=== PATIENT | female | born 1955 | race African-American/Black ===

== ENCOUNTER 2023-09-24 14:50 | Emergency (ER) | payer OTHER ==
[~2023-09-24] VITALS: Ht 170.2 cm; Wt 101.0 kg
[2023-09-24 14:58] VITALS: O2SAT 98
[2023-09-24] MEDS ORDERED: IOHEXOL-350 100 ML BOTTLE ONE (15:23)
[2023-09-24 16:27] LABS: ADD RBC MORPHOLOGY YES; BASOPHILS % 0.2 % (0.0-2.0); DIFFERENTIAL COMMENT 1; EOSINOPHILS % 0.5 % (0.0-5.0); HEMATOCRIT. 28.9 % (36.0-48.0); HEMOGLOBIN. 9.4 g/dL (12.0-16.0); LYMPHOCYTES % 18.8 % (20.0-50.0); MEAN CORPUSCULAR HEMOGLOBIN 36.9 pg (28.0-32.0); MEAN CORPUSCULAR HGB CONC 32.4 g/dL (31.0-37.0); MEAN CORPUSCULAR VOLUME 113.9 fL (81.0-99.0); MEAN PLATELET VOLUME 7.5 fl (7.4-10.4); MONOCYTES % 13.3 % (2.0-8.0); NEUTROPHILS % 67.2 % (40.0-76.0); PLATELET 273 x1000/uL (130-400); RED BLOOD CELL COUNT 2.53 mill/uL (4.2-5.4); RED CELL DISTRIBUTION WIDTH 21.6 % (11.6-14.6); WHITE BLOOD COUNT 4.5 x1000/uL (4.5-11.0)
[2023-09-24 16:36] LABS: PARTIAL THROMBOPLASTIN TIME 25.6 sec (23.4-31.0); PROTHROMBIN TIME 10.6 sec (9.6-11.0)
[2023-09-24 16:46] LABS: ANISOCYTOSIS 1+; PLATELET ESTIMATE NORMAL
[2023-09-24] MEDS: ASPIRIN 325MG EC TABLET PO ONE ×2 (16:46→16:48)
[2023-09-24 16:49] LABS: ALANINE AMINOTRANSFERASE 10 IU/L (10-49); ALBUMIN 3.9 g/dL (3.2-4.8); ASPARTATE AMINOTRANSFERASE 32 IU/L (<34); BILIRUBIN TOTAL 0.7 mg/dL (0.1-1.0); CALCIUM 8.9 mg/dL (8.7-10.4); CARBON DIOXIDE 24 mEq/L (21-32); CHLORIDE 105 mEq/L (98-107); CREATININE 2.9 mg/dL (0.6-1.0); GLUCOSE 79 mg/dL (70-105); POTASSIUM 4.7 mEq/L (3.5-5.1); PROTEIN TOTAL 6.3 g/dL (6.0-8.3); SODIUM 137 mEq/L (136-145); UREA NITROGEN BLOOD 35 mg/dL (9-23)
[2023-09-24 17:03] LABS: TROPONIN I HIGH SENSITIVITY 40 ng/L (3.0-34)
[2023-09-24 21:54] VITALS: BP 165/78; PULSE 76; RESP 17; TEMP 98.6
== END 2023-09-24 22:15 | disposition short-term general hospital (02) ==
LOC: ER 15:18 → CANBEDREQ 18:01 → ER 22:15
DX: I63.9 Cerebral infarction, unspecified (principal); R29.810 Facial weakness; R53.1 Weakness; I21.4 Non-ST elevation (NSTEMI) myocardial infarction
CPT/HCPCS: 99285; 70496; 71045; 80053; 83880; 85025; 85610; 85730; 84484; 36415; 70498; 70450; 93005; Q9967